=== PATIENT | male | born 1980 | race African-American/Black ===

== ENCOUNTER 2017-12-20 22:20 | Inpatient (IN) | payer MEDICARE, MEDICAID ==
[~2017-12-20] VITALS: Ht 172.7 cm; Wt 84.4 kg
[~2017-12-20 22:20] MED LIST: BENZ1TAB10 PO; FLUO-191 PO; OLAN5TAB2 PO; RISP3 PO
[2017-12-20] MEDS ORDERED: ZOLPIDEM TARTRATE 5 MG TABLET PO PRN (23:00)
[2017-12-20] MEDS ORDERED: HALOPERIDOL 10 MG TABLET PO PRN (23:00)
[2017-12-20] MEDS ORDERED: PNEUMOCOCCAL VACCINE POLYVALENT 0.5 ML VIAL [PPSV23] IM ONE (23:30)
[2017-12-20] MEDS ORDERED: INFLUENZA VIRUS VACCINE QVS 2017-18 (3YR+)/PF 60 MCG/0.5 ML SYRINGE IM ONE (23:30)
[2017-12-21 00:09] VITALS: BP 163/97
[2017-12-21 00:14] VITALS: BP 163/97
[2017-12-21] MEDS: LORazepam 2 MG TABLET PO PRN (01:23)
[2017-12-21 06:44] LABS: BASOPHILS % (AUTO) 0.5 % (0.0-2.0); HEMATOCRIT 40.5 % (41-53); HEMOGLOBIN 13.8 g/dL (13.5-17.5); LYMPHOCYTES # (AUTO) 3.6 K/uL (1.0-4.8); LYMPHOCYTES % (AUTO) 37.9 % (22.0-44.0); MEAN CORPUSCULAR HEMOGLOBIN 31.4 pg (26.0-34.0); MEAN CORPUSCULAR HGB CONC 33.9 G/dL (31.0-37.0); MEAN CORPUSCULAR VOLUME 93 fL (80-100); MONOCYTES % (AUTO) 10.8 % (2.0-9.0); NEUTROPHILS # (AUTO) 4.7 K/uL (1.8-7.7); NEUTROPHILS % (AUTO) 49.8 % (40.0-70.0); PLATELET COUNT (AUTO) 175 K/uL (150-450); RED BLOOD CELL COUNT(AUTO) 4.38 MIL/uL (4.50-5.90); RED CELL DISTRIBUTION WIDTH 14.7 % (11.5-14.5)
[2017-12-21 07:03] LABS: ALANINE AMINOTRANSFERASE 24 U/L (12-78); ALBUMIN 2.9 g/dL (3.4-5.0); ALKALINE PHOSPHATASE 66 U/L (46-116); ANION GAP 5 mmol/L (8-16); ASPARTATE AMINOTRANSFERASE 17 U/L (15-37); BILIRUBIN,TOTAL 0.3 mg/dL (0.1-1.0); CALCIUM, TOTAL 8.5 mg/dL (8.8-10.5); CARBON DIOXIDE 28 mmol/L (22-29); CHLORIDE 104 mmol/L (98-107); CHOL/HDL RATIO 5.1 (4.2-7.3); CHOLESTEROL 142 mg/dL (131-200); CREATININE 0.77 mg/dL (0.60-1.30); FREE T4 (FREE THYROXINE) 0.94 ng/dL (0.76-1.46); GLOMERULAR FILTR. RATE CALC > 60 mL/min (>60); GLUCOSE,RANDOM 93 mg/dL (70-110); HDL CHOLESTEROL 28 mg/dL (40-60); LDL CHOL (CALC.) 101 mg/dL (0-130); POTASSIUM 3.7 mmol/L (3.5-5.1); SODIUM SERUM 137 mmol/L (136-145); THYROID STIMULATING HORMONE 1.78 uIU/mL (0.36-3.74); TOTAL PROTEIN, SERUM 6.7 g/dL (6.4-8.2); TRIGLYCERIDES 63 mg/dL (15-150); UREA NITROGEN, BLOOD 6 mg/dL (7-18)
[2017-12-21 07:13] LABS: HEMOGLOBIN A1C 5.9 % (4.5-6.2)
[2017-12-21 08:00] VITALS: BP 123/90
[2017-12-21] MEDS: OLANZapine 5 MG RAPDIS TABLET PO SCH ×2 (08:19→20:29)
[2017-12-21] MEDS: DIVALPROEX SODIUM 500 MG ER TABLET PO SCH ×2 (08:19→20:29)
[2017-12-21 08:22] LABS: AMPHET/METH SCREEN,URINE NEGATIVE (NEGATIVE); BARBITURATE SCREEN, URINE NEGATIVE (NEGATIVE); BENZODIAZEPINES SCREEN,URINE NEGATIVE (NEGATIVE); CANNABINOID SCREEN,URINE NEGATIVE (NEGATIVE); COCAINE SCREEN,URINE NEGATIVE (NEGATIVE); METHADONE SCREEN, URINE NEGATIVE (NEGATIVE); OPIATE SCREEN,URINE NEGATIVE (NEGATIVE)
[2017-12-21 08:25] LABS: PHENCYCLIDINE SCREEN,URINE NEGATIVE (NEGATIVE)
[2017-12-21 08:43] LABS: APPEARANCE,URINE CLEAR (CLEAR); BILIRUBIN,URINE NEGATIVE (NEGATIVE); GLUCOSE, URINE (UA) NEGATIVE (NEGATIVE); KETONES,URINE NEGATIVE (NEGATIVE); LEUKOCYTE ESTERASE ,URINE NEGATIVE (NEGATIVE); NITRATE,URINE NEGATIVE (NEGATIVE); OCCULT BLOOD,URINE NEGATIVE (NEGATIVE); PROTEIN,URINE NEGATIVE (NEGATIVE)
[2017-12-21] MEDS ORDERED: MAG HYDROX/AL HYDROX/SIMETH ES 30 ML SUSPENSION UDCUP PO PRN (09:00)
[2017-12-21] MEDS ORDERED: IBUPROFEN 600 MG TABLET PO PRN (09:00)
[2017-12-21] MEDS ORDERED: PETROLATUM,WHITE 71 GM JELLY TP PRN (09:00)
[2017-12-21] MEDS ORDERED: BACITRACIN 28.4 GM OINTMENT TP PRN (09:00)
[2017-12-21] MEDS ORDERED: ONDANSETRON HCL 4 MG TABLET PO PRN (09:00)
[2017-12-21] MEDS ORDERED: LOPERAMIDE HCL 2 MG CAPSULE PO PRN (09:00)
[2017-12-21] MEDS ORDERED: ACETAMINOPHEN 325 MG TABLET PO PRN (09:00)
[2017-12-21] MEDS ORDERED: CloNIDine HCL 0.1 MG TABLET PO PRN (09:00)
[2017-12-21] MEDS ORDERED: MAGNESIUM HYDROXIDE SUSPENSION 30 ML UDCUP PO PRN (09:00)
[2017-12-21] MEDS ORDERED: BENZOCAINE/MENTHOL LOZENGE [8 LOZENGES/PACKET] MM PRN (09:00)
[2017-12-21] MEDS ORDERED: ALBUTEROL SULFATE HFA 90 MCG/PUFF 8 GM INHALER IH PRN (09:00)
[2017-12-21] MEDS: OMEPRAZOLE 20 MG CAPSULE PO SCH (10:17)
[2017-12-21 17:27] VITALS: BP 139/69
[2017-12-22 08:00] VITALS: BP 143/86
[2017-12-22] MEDS: OLANZapine 5 MG RAPDIS TABLET PO SCH ×2 (09:00→20:19)
[2017-12-22] MEDS: OMEPRAZOLE 20 MG CAPSULE PO SCH (09:00)
[2017-12-22] MEDS: DIVALPROEX SODIUM 500 MG ER TABLET PO SCH ×2 (09:00→20:19)
[2017-12-22] MEDS: LISINOPRIL 10 MG TABLET PO SCH (09:01)
[2017-12-22] MEDS: LORazepam 2 MG TABLET PO PRN (16:04)
[2017-12-22 19:07] VITALS: BP 131/75
[2017-12-23] MEDS: DIVALPROEX SODIUM 500 MG ER TABLET PO SCH ×2 (08:00→20:14)
[2017-12-23] MEDS: OLANZapine 5 MG RAPDIS TABLET PO SCH ×2 (08:00→20:14)
[2017-12-23] MEDS: OMEPRAZOLE 20 MG CAPSULE PO SCH (08:00)
[2017-12-23] MEDS: LISINOPRIL 10 MG TABLET PO SCH (08:01)
[2017-12-23 08:46] VITALS: BP 122/79
[2017-12-23] MEDS: LORazepam 2 MG TABLET PO PRN (11:00)
[2017-12-23 16:21] VITALS: BP 117/72
[2017-12-24 08:00] VITALS: BP 125/80
[2017-12-24] MEDS: DIVALPROEX SODIUM 500 MG ER TABLET PO SCH ×2 (08:07→20:20)
[2017-12-24] MEDS: OLANZapine 5 MG RAPDIS TABLET PO SCH ×2 (08:08→20:20)
[2017-12-24] MEDS: OMEPRAZOLE 20 MG CAPSULE PO SCH (08:08)
[2017-12-24] MEDS: LISINOPRIL 10 MG TABLET PO SCH (08:08)
[2017-12-24] MEDS: LORazepam 2 MG TABLET PO PRN (11:43)
[2017-12-24 17:19] VITALS: BP 110/59
[2017-12-25 08:30] VITALS: BP 119/89
[2017-12-25] MEDS: DIVALPROEX SODIUM 500 MG ER TABLET PO SCH ×2 (08:30→20:09)
[2017-12-25] MEDS: OMEPRAZOLE 20 MG CAPSULE PO SCH (08:30)
[2017-12-25] MEDS: OLANZapine 5 MG RAPDIS TABLET PO SCH ×2 (08:31→20:10)
[2017-12-25] MEDS: LISINOPRIL 10 MG TABLET PO SCH (08:31)
[2017-12-25 10:10] LABS: HIV 1-2 SCREEN 4TH GEN W/RFLX Non Reactive (Non Reactive)
[2017-12-25 17:03] VITALS: BP 110/77
[2017-12-25] MEDS: LORazepam 2 MG TABLET PO PRN (18:42)
[2017-12-25] MEDS ORDERED: OLANZapine 10 MG RAPDIS TABLET PO SCH (21:00)
[2017-12-26 08:07] VITALS: BP 125/74
[2017-12-26] MEDS: DIVALPROEX SODIUM 500 MG ER TABLET PO SCH ×2 (08:12→21:05)
[2017-12-26] MEDS: OLANZapine 5 MG RAPDIS TABLET PO SCH (08:12)
[2017-12-26] MEDS: OMEPRAZOLE 20 MG CAPSULE PO SCH (08:12)
[2017-12-26] MEDS: LISINOPRIL 10 MG TABLET PO SCH (08:12)
[2017-12-26] MEDS ORDERED: OLANZapine 5 MG RAPDIS TABLET PO SCH ×2 (09:00)
[2017-12-26] MEDS: LORazepam 2 MG TABLET PO PRN (12:36)
[2017-12-26 17:31] VITALS: BP 128/78
[2017-12-26] MEDS: OLANZapine 10 MG RAPDIS TABLET PO SCH (21:03)
[2017-12-27 08:17] VITALS: BP 114/73
[2017-12-27] MEDS: DIVALPROEX SODIUM 500 MG ER TABLET PO SCH ×2 (08:25→20:28)
[2017-12-27] MEDS: OMEPRAZOLE 20 MG CAPSULE PO SCH (08:25)
[2017-12-27] MEDS: LISINOPRIL 10 MG TABLET PO SCH (08:26)
[2017-12-27] MEDS: OLANZapine 5 MG RAPDIS TABLET PO SCH (08:26)
[2017-12-27] MEDS: LORazepam 2 MG TABLET PO PRN (15:10)
[2017-12-27 17:00] VITALS: BP 103/57
[2017-12-27] MEDS: OLANZapine 10 MG RAPDIS TABLET PO SCH (20:29)
[2017-12-28 09:03] VITALS: BP 126/79
[2017-12-28] MEDS: DIVALPROEX SODIUM 500 MG ER TABLET PO SCH ×2 (09:13→20:15)
[2017-12-28] MEDS: LISINOPRIL 10 MG TABLET PO SCH (09:14)
[2017-12-28] MEDS: CHOLECALCIFEROL (VIT D3) 1,000 UNITS TABLET PO SCH (09:14)
[2017-12-28] MEDS: OMEPRAZOLE 20 MG CAPSULE PO SCH (09:14)
[2017-12-28] MEDS: OLANZapine 5 MG RAPDIS TABLET PO SCH (09:15)
[2017-12-28 20:00] VITALS: BP 113/69
[2017-12-28] MEDS: OLANZapine 10 MG RAPDIS TABLET PO SCH (20:15)
[2017-12-29] MEDS ORDERED: DIVA500T52 PO ×2 (05:52)
[2017-12-29] MEDS ORDERED: OLAN5TAB40 PO (05:53)
[2017-12-29] MEDS ORDERED: OLAN10TA6 PO (05:53)
[2017-12-29 08:15] VITALS: BP 113/68
[2017-12-29] MEDS ORDERED: VITAD1000 PO (08:36)
[2017-12-29] MEDS ORDERED: LISI-661 PO (08:36)
[2017-12-29] MEDS ORDERED: OMEP20 PO (08:36)
[2017-12-29 08:56] LABS: BASOPHILS % (AUTO) 0.4 % (0.0-2.0); EOSINOPHILS % (AUTO) 0.7 % (1.0-6.0); HEMOGLOBIN 14.5 g/dL (13.5-17.5); LYMPHOCYTES # (AUTO) 3.9 K/uL (1.0-4.8); LYMPHOCYTES % (AUTO) 34.2 % (22.0-44.0); MEAN CORPUSCULAR HEMOGLOBIN 31.3 pg (26.0-34.0); MEAN CORPUSCULAR HGB CONC 33.8 G/dL (31.0-37.0); MEAN CORPUSCULAR VOLUME 93 fL (80-100); MONOCYTES # (AUTO) 1.2 K/uL (0.1-1.0); MONOCYTES % (AUTO) 10.6 % (2.0-9.0); NEUTROPHILS # (AUTO) 6.2 K/uL (1.8-7.7); NEUTROPHILS % (AUTO) 54.1 % (40.0-70.0); PLATELET COUNT (AUTO) 237 K/uL (150-450); RED BLOOD CELL COUNT(AUTO) 4.64 MIL/uL (4.50-5.90)
[2017-12-29 09:13] LABS: ALBUMIN 3.3 g/dL (3.4-5.0); BILIRUBIN,TOTAL 0.3 mg/dL (0.1-1.0); TOTAL PROTEIN, SERUM 7.4 g/dL (6.4-8.2)
[2017-12-29] MEDS: LISINOPRIL 10 MG TABLET PO SCH (09:14)
[2017-12-29] MEDS: OMEPRAZOLE 20 MG CAPSULE PO SCH (09:14)
[2017-12-29] MEDS: CHOLECALCIFEROL (VIT D3) 1,000 UNITS TABLET PO SCH (09:14)
[2017-12-29] MEDS: OLANZapine 5 MG RAPDIS TABLET PO SCH (09:14)
[2017-12-29] MEDS: DIVALPROEX SODIUM 500 MG ER TABLET PO SCH (09:14)
[2017-12-29 09:22] LABS: BILIRUBIN,DIRECT 0.1 mg/dL (0.00-0.20)
== END 2017-12-29 10:30 | disposition home or self-care (01) | DRG 885 ==
LOC: 3EX 23:02 → EDSTATUS 23:06
PROVIDERS: ADMIT Psychiatry & Neurology Psychiatry; ATTEND Psychiatry & Neurology Psychiatry
DX: F20.0 Paranoid schizophrenia (principal); E83.51 Hypocalcemia; B18.2 Chronic viral hepatitis C; F15.10 Other stimulant abuse, uncomplicated; Z71.51 Drug abuse counseling and surveillance of drug abuser; F17.200 Nicotine dependence, unspecified, uncomplicated; Z71.6 Tobacco abuse counseling; G47.00 Insomnia, unspecified; I10 Essential (primary) hypertension; K21.9 Gastro-esophageal reflux disease without esophagitis; Z91.19 Patient's noncompliance with other medical treatment and regimen
CPT/HCPCS: 80074; 80307; 82306; 83036; 84439; 84443; 85613; 85732; 87081; 87389

== ENCOUNTER 2018-07-04 18:37 | Inpatient (IN) | payer MEDICARE, MEDICAID ==
[~2018-07-04] VITALS: Ht 172.7 cm; Wt 78.5 kg
[~2018-07-04 18:37] MED LIST changes: -BENZ1TAB10 PO; +DIVA500T52 PO; -FLUO-191 PO; +LISI-661 PO; +OLAN10TA6 PO; -OLAN5TAB2 PO; +OLAN5TAB40 PO; +OMEP20 PO; -RISP3 PO; +VITAD1000 PO
[2018-07-04] MEDS ORDERED: HALO5TAB2 PO (19:28)
[2018-07-04 19:42] LABS: BASOPHILS % (AUTO) 0.9 % (0.0-2.0); HEMATOCRIT 43.4 % (41-53); HEMOGLOBIN 14.5 g/dL (13.5-17.5); LYMPHOCYTES # (AUTO) 3.8 K/uL (1.0-4.8); LYMPHOCYTES % (AUTO) 32.4 % (22.0-44.0); MEAN CORPUSCULAR HEMOGLOBIN 31.3 pg (26.0-34.0); MEAN CORPUSCULAR HGB CONC 33.3 G/dL (31.0-37.0); MEAN CORPUSCULAR VOLUME 94 fL (80-100); MONOCYTES # (AUTO) 2.2 K/uL (0.1-1.0); MONOCYTES % (AUTO) 18.8 % (2.0-9.0); NEUTROPHILS # (AUTO) 5.6 K/uL (1.8-7.7); NEUTROPHILS % (AUTO) 46.9 % (40.0-70.0); PLATELET COUNT (AUTO) 179 K/uL (150-450); RED BLOOD CELL COUNT(AUTO) 4.62 MIL/uL (4.50-5.90); RED CELL DISTRIBUTION WIDTH 15.6 % (11.5-14.5)
[2018-07-04 19:56] LABS: ANION GAP 8 mmol/L (8-16); CALCIUM, TOTAL 8.8 mg/dL (8.8-10.5); CARBON DIOXIDE 28 mmol/L (22-29); CHLORIDE 104 mmol/L (98-107); CREATININE 0.99 mg/dL (0.60-1.30); GLOMERULAR FILTR. RATE CALC > 60 mL/min (>60); GLUCOSE,RANDOM 114 mg/dL (70-110); POTASSIUM 3.7 mmol/L (3.5-5.1); SODIUM SERUM 140 mmol/L (136-145); UREA NITROGEN, BLOOD 10 mg/dL (7-18)
[2018-07-04] MEDS ORDERED: LORazepam 2 MG TABLET PO PRN (20:00)
[2018-07-04] MEDS ORDERED: HALOPERIDOL 5 MG TABLET PO PRN (20:00)
[2018-07-04] MEDS ORDERED: ZOLPIDEM TARTRATE 10 MG TABLET PO PRN (20:00)
[2018-07-04] MEDS ORDERED: LORazepam 2 MG TABLET PO ONE (20:00)
[2018-07-04] MEDS ORDERED: HALOPERIDOL 5 MG TABLET PO ONE (20:00)
[2018-07-04] MEDS ORDERED: DiphenhydrAMINE HCL 25 MG CAPSULE PO ONE (20:00)
[2018-07-04 20:03] LABS: ALANINE AMINOTRANSFERASE 15 U/L (12-78); ALBUMIN 3.2 g/dL (3.4-5.0); ALKALINE PHOSPHATASE 83 U/L (46-116); ASPARTATE AMINOTRANSFERASE 8 U/L (15-37); BILIRUBIN,TOTAL 0.3 mg/dL (0.1-1.0); TOTAL PROTEIN, SERUM 7.2 g/dL (6.4-8.2)
[2018-07-04 20:20] LABS: HEMOGLOBIN A1C 5.6 % (4.5-6.2)
[2018-07-04 20:29] LABS: CHOL/HDL RATIO 4.2 (4.2-7.3); CHOLESTEROL 148 mg/dL (131-200); FREE T4 (FREE THYROXINE) 0.97 ng/dL (0.76-1.46); HDL CHOLESTEROL 35 mg/dL (40-60); LDL CHOL (CALC.) 95 mg/dL (0-130); TRIGLYCERIDES 90 mg/dL (15-150)
[2018-07-05 01:55] VITALS: BP 138/84
[2018-07-05] MEDS ORDERED: PNEUMOCOCCAL VACCINE POLYVALENT 0.5 ML VIAL [PPSV23] IM ONE (03:30)
[2018-07-05] MEDS ORDERED: ONDANSETRON HCL 4 MG TABLET PO PRN (07:00)
[2018-07-05] MEDS ORDERED: MAG HYDROX/AL HYDROX/SIMETH ES 30 ML SUSPENSION UDCUP PO PRN (07:00)
[2018-07-05] MEDS ORDERED: IBUPROFEN 600 MG TABLET PO PRN (07:00)
[2018-07-05] MEDS ORDERED: MAGNESIUM HYDROXIDE SUSPENSION 30 ML UDCUP PO PRN (07:00)
[2018-07-05] MEDS ORDERED: PETROLATUM,WHITE 71 GM JELLY TP PRN (07:00)
[2018-07-05] MEDS ORDERED: CloNIDine HCL 0.1 MG TABLET PO PRN (07:00)
[2018-07-05] MEDS ORDERED: ALBUTEROL SULFATE HFA 90 MCG/PUFF 8 GM INHALER IH PRN (07:00)
[2018-07-05] MEDS ORDERED: BENZOCAINE/MENTHOL LOZENGE MM PRN (07:00)
[2018-07-05] MEDS ORDERED: BACITRACIN 28.4 GM OINTMENT TP PRN (07:00)
[2018-07-05] MEDS ORDERED: LOPERAMIDE HCL 2 MG CAPSULE PO PRN ×2 (07:00→11:00)
[2018-07-05] MEDS ORDERED: ACETAMINOPHEN 325 MG TABLET PO PRN (07:00)
[2018-07-05 08:00] VITALS: BP 127/83
[2018-07-05] MEDS: LISINOPRIL 10 MG TABLET PO SCH (08:35)
[2018-07-05] MEDS: CHOLECALCIFEROL (VIT D3) 1,000 UNITS TABLET PO SCH (08:35)
[2018-07-05] MEDS: DOCUSATE SODIUM 100 MG CAPSULE PO SCH (08:35)
[2018-07-05] MEDS: OMEPRAZOLE 20 MG CAPSULE PO SCH (08:35)
[2018-07-05] MEDS ORDERED: LISINOPRIL 10 MG TABLET PO SCH (09:00)
[2018-07-05] MEDS ORDERED: OMEPRAZOLE 20 MG CAPSULE PO SCH (09:00)
[2018-07-05] MEDS: NICOTINE 21 MG/24 HOUR PATCH TD SCH (10:38)
[2018-07-05] MEDS ORDERED: GuaiFENesin/D-METHORPHAN [SUGAR-FREE] 200-20MG/10 ML SYRUP UDCUP PO PRN (11:00)
[2018-07-05] MEDS ORDERED: HydrOXYzine PAMOATE 50 MG CAPSULE PO PRN (11:00)
[2018-07-05] MEDS ORDERED: OLANZapine 5 MG RAPDIS TABLET PO PRN (11:00)
[2018-07-05 16:06] VITALS: BP 114/71
[2018-07-05] MEDS: THIAMINE HCL 100 MG TABLET PO SCH (16:32)
[2018-07-05] MEDS: DIVALPROEX SODIUM 500 MG ER TABLET PO SCH (20:32)
[2018-07-05] MEDS ORDERED: OLANZapine 5 MG RAPDIS TABLET PO SCH (21:00)
[2018-07-06 05:18] VITALS: BP 119/67
[2018-07-06 08:19] VITALS: BP 115/72
[2018-07-06] MEDS: LISINOPRIL 10 MG TABLET PO SCH (08:38)
[2018-07-06] MEDS: NALTREXONE HCL 50 MG TABLET PO SCH (08:38)
[2018-07-06] MEDS: OMEPRAZOLE 20 MG CAPSULE PO SCH (08:38)
[2018-07-06] MEDS: THIAMINE HCL 100 MG TABLET PO SCH ×2 (08:38→16:05)
[2018-07-06] MEDS: CHOLECALCIFEROL (VIT D3) 1,000 UNITS TABLET PO SCH (08:38)
[2018-07-06] MEDS: MULTIVITAMINS WITH MINERALS, THERAPEUTIC TABLET PO SCH (08:38)
[2018-07-06] MEDS: FOLIC ACID 1 MG TABLET PO SCH (08:38)
[2018-07-06] MEDS: DOCUSATE SODIUM 100 MG CAPSULE PO SCH (08:38)
[2018-07-06] MEDS: NICOTINE 21 MG/24 HOUR PATCH TD SCH (08:39)
[2018-07-06 16:06] VITALS: BP 117/81
[2018-07-06] MEDS: OLANZapine 10 MG RAPDIS TABLET PO SCH (20:08)
[2018-07-06] MEDS: DIVALPROEX SODIUM 500 MG ER TABLET PO SCH (20:08)
[2018-07-07 05:44] VITALS: BP 122/75
[2018-07-07 08:15] VITALS: BP 134/61
[2018-07-07 08:37] LABS: HEMATOCRIT 45.1 % (41-53); HEMOGLOBIN 15.1 g/dL (13.5-17.5); MEAN CORPUSCULAR HGB CONC 33.4 G/dL (31.0-37.0); MEAN CORPUSCULAR VOLUME 96 fL (80-100); PLATELET COUNT (AUTO) 163 K/uL (150-450); RED BLOOD CELL COUNT(AUTO) 4.71 MIL/uL (4.50-5.90); RED CELL DISTRIBUTION WIDTH 15.4 % (11.5-14.5)
[2018-07-07] MEDS: OMEPRAZOLE 20 MG CAPSULE PO SCH (08:50)
[2018-07-07] MEDS: LISINOPRIL 10 MG TABLET PO SCH (08:50)
[2018-07-07] MEDS: CHOLECALCIFEROL (VIT D3) 1,000 UNITS TABLET PO SCH (08:50)
[2018-07-07] MEDS: NALTREXONE HCL 50 MG TABLET PO SCH (08:50)
[2018-07-07] MEDS: FOLIC ACID 1 MG TABLET PO SCH (08:50)
[2018-07-07] MEDS: MULTIVITAMINS WITH MINERALS, THERAPEUTIC TABLET PO SCH (08:50)
[2018-07-07] MEDS: DOCUSATE SODIUM 100 MG CAPSULE PO SCH (08:50)
[2018-07-07] MEDS: THIAMINE HCL 100 MG TABLET PO SCH ×2 (08:50→16:32)
[2018-07-07] MEDS: NICOTINE 21 MG/24 HOUR PATCH TD SCH (08:51)
[2018-07-07 10:07] LABS: BAND NEUTROPHILS % (MANUAL) 0 % (0-5)
[2018-07-07 10:09] LABS: LYMPHOCYTES % (MANUAL) 20 % (22-44); MONOCYTES % (MANUAL) 33 % (2-9); SEGMENTED NEUTROPHILS % 47 % (40-70)
[2018-07-07 16:07] VITALS: BP 112/73
[2018-07-07] MEDS: DIVALPROEX SODIUM 500 MG ER TABLET PO SCH (20:35)
[2018-07-07] MEDS: OLANZapine 10 MG RAPDIS TABLET PO SCH (20:35)
[2018-07-08 06:18] VITALS: BP 105/65
[2018-07-08 08:57] VITALS: BP 128/75
[2018-07-08] MEDS: MULTIVITAMINS WITH MINERALS, THERAPEUTIC TABLET PO SCH (08:57)
[2018-07-08] MEDS: THIAMINE HCL 100 MG TABLET PO SCH ×2 (08:57→16:37)
[2018-07-08] MEDS: LISINOPRIL 10 MG TABLET PO SCH (08:57)
[2018-07-08] MEDS: OMEPRAZOLE 20 MG CAPSULE PO SCH (08:57)
[2018-07-08] MEDS: NICOTINE 21 MG/24 HOUR PATCH TD SCH (08:57)
[2018-07-08] MEDS: FOLIC ACID 1 MG TABLET PO SCH (08:57)
[2018-07-08] MEDS: NALTREXONE HCL 50 MG TABLET PO SCH (08:57)
[2018-07-08] MEDS: CHOLECALCIFEROL (VIT D3) 1,000 UNITS TABLET PO SCH (08:57)
[2018-07-08] MEDS: DOCUSATE SODIUM 100 MG CAPSULE PO SCH (08:57)
[2018-07-08 16:07] VITALS: BP 114/72
[2018-07-08] MEDS: DIVALPROEX SODIUM 500 MG ER TABLET PO SCH (20:34)
[2018-07-08] MEDS: OLANZapine 10 MG RAPDIS TABLET PO SCH (20:34)
[2018-07-09 01:15] VITALS: BP 122/75
[2018-07-09] MEDS: MULTIVITAMINS WITH MINERALS, THERAPEUTIC TABLET PO SCH (08:16)
[2018-07-09] MEDS: CHOLECALCIFEROL (VIT D3) 1,000 UNITS TABLET PO SCH (08:16)
[2018-07-09] MEDS: NALTREXONE HCL 50 MG TABLET PO SCH (08:16)
[2018-07-09] MEDS: THIAMINE HCL 100 MG TABLET PO SCH ×2 (08:16→16:06)
[2018-07-09] MEDS: LISINOPRIL 10 MG TABLET PO SCH (08:16)
[2018-07-09] MEDS: OMEPRAZOLE 20 MG CAPSULE PO SCH (08:16)
[2018-07-09] MEDS: DOCUSATE SODIUM 100 MG CAPSULE PO SCH (08:16)
[2018-07-09] MEDS: FOLIC ACID 1 MG TABLET PO SCH (08:17)
[2018-07-09] MEDS: NICOTINE 21 MG/24 HOUR PATCH TD SCH (08:22)
[2018-07-09 08:24] VITALS: BP 123/68
[2018-07-09 16:31] VITALS: BP 111/69
[2018-07-09] MEDS: OLANZapine 10 MG RAPDIS TABLET PO SCH (20:28)
[2018-07-09] MEDS: DIVALPROEX SODIUM 500 MG ER TABLET PO SCH (20:28)
[2018-07-10 05:34] VITALS: BP 120/81
[2018-07-10 08:51] VITALS: BP 118/77
[2018-07-10] MEDS: LISINOPRIL 10 MG TABLET PO SCH (09:01)
[2018-07-10] MEDS: FOLIC ACID 1 MG TABLET PO SCH (09:01)
[2018-07-10] MEDS: OMEPRAZOLE 20 MG CAPSULE PO SCH (09:01)
[2018-07-10] MEDS: MULTIVITAMINS WITH MINERALS, THERAPEUTIC TABLET PO SCH (09:01)
[2018-07-10] MEDS: CHOLECALCIFEROL (VIT D3) 1,000 UNITS TABLET PO SCH (09:01)
[2018-07-10] MEDS: DOCUSATE SODIUM 100 MG CAPSULE PO SCH (09:02)
[2018-07-10] MEDS: NALTREXONE HCL 50 MG TABLET PO SCH (09:02)
[2018-07-10] MEDS: NICOTINE 21 MG/24 HOUR PATCH TD SCH (09:07)
[2018-07-10] MEDS: THIAMINE HCL 100 MG TABLET PO SCH ×2 (09:16→16:10)
[2018-07-10 16:06] VITALS: BP 119/73
[2018-07-10] MEDS: DIVALPROEX SODIUM 500 MG ER TABLET PO SCH (20:24)
[2018-07-10] MEDS: OLANZapine 10 MG RAPDIS TABLET PO SCH (20:25)
[2018-07-11 04:24] VITALS: BP 121/68
[2018-07-11 08:36] VITALS: BP 114/75
[2018-07-11] MEDS: DOCUSATE SODIUM 100 MG CAPSULE PO SCH (08:51)
[2018-07-11] MEDS: THIAMINE HCL 100 MG TABLET PO SCH ×2 (08:51→16:23)
[2018-07-11] MEDS: NALTREXONE HCL 50 MG TABLET PO SCH (08:51)
[2018-07-11] MEDS: FOLIC ACID 1 MG TABLET PO SCH (08:51)
[2018-07-11] MEDS: NICOTINE 21 MG/24 HOUR PATCH TD SCH (08:51)
[2018-07-11] MEDS: MULTIVITAMINS WITH MINERALS, THERAPEUTIC TABLET PO SCH (08:51)
[2018-07-11] MEDS: LISINOPRIL 10 MG TABLET PO SCH (08:51)
[2018-07-11] MEDS: CHOLECALCIFEROL (VIT D3) 1,000 UNITS TABLET PO SCH (08:51)
[2018-07-11] MEDS: OMEPRAZOLE 20 MG CAPSULE PO SCH (08:51)
[2018-07-11] MEDS ORDERED: OLAN10TA22 PO (14:01)
[2018-07-11] MEDS ORDERED: NALT50TA PO (14:01)
[2018-07-11] MEDS ORDERED: DIVA500T52 PO (14:01)
[2018-07-11] MEDS ORDERED: DSS100 PO (16:49)
[2018-07-11] MEDS ORDERED: OLAN10TA3 PO (16:51)
[2018-07-11] MEDS ORDERED: NALT50TA6 PO (16:53)
== END 2018-07-11 17:20 | disposition home or self-care (01) | DRG 885 ==
LOC: EMS 18:39 → B2X 20:51
PROVIDERS: ADMIT Psychiatry & Neurology Psychiatry; ATTEND Psychiatry & Neurology Psychiatry
DX: F20.9 Schizophrenia, unspecified (principal); F17.210 Nicotine dependence, cigarettes, uncomplicated; D72.829 Elevated white blood cell count, unspecified; G47.00 Insomnia, unspecified; F15.90 Other stimulant use, unspecified, uncomplicated; F41.9 Anxiety disorder, unspecified
CPT/HCPCS: 83036; 84439; 84443; 99285; G0480

== ENCOUNTER 2018-12-09 00:37 | Emergency (ER) | payer MEDICARE, OTHER ==
[~2018-12-09] VITALS: Ht 172.7 cm; Wt 80.9 kg
[~2018-12-09 00:37] MED LIST changes: +DSS100 PO; +NALT50TA PO; +NALT50TA6 PO; +OLAN10TA22 PO; +OLAN10TA3 PO; -OLAN10TA6 PO; -OLAN5TAB40 PO
[2018-12-09 01:24] VITALS: BP 124/71
[2018-12-09 01:46] LABS: BASOPHILS % (AUTO) 0.7 % (0.0-2.0); EOSINOPHILS % (AUTO) 0.1 % (1.0-6.0); HEMATOCRIT 43.7 % (41-53); HEMOGLOBIN 14.5 g/dL (13.5-17.5); LYMPHOCYTES # (AUTO) 2.5 K/uL (1.0-4.8); LYMPHOCYTES % (AUTO) 21.1 % (22.0-44.0); MEAN CORPUSCULAR HGB CONC 33.1 G/dL (31.0-37.0); MEAN CORPUSCULAR VOLUME 94 fL (80-100); MONOCYTES % (AUTO) 8.3 % (2.0-9.0); NEUTROPHILS # (AUTO) 8.2 K/uL (1.8-7.7); NEUTROPHILS % (AUTO) 69.8 % (40.0-70.0); PLATELET COUNT (AUTO) 279 K/uL (150-450); RED BLOOD CELL COUNT(AUTO) 4.66 MIL/uL (4.50-5.90); RED CELL DISTRIBUTION WIDTH 14.1 % (11.5-14.5)
[2018-12-09 01:54] LABS: AMPHET/METH SCREEN,URINE POSITIVE (NEGATIVE); BARBITURATE SCREEN, URINE NEGATIVE (NEGATIVE); BENZODIAZEPINES SCREEN,URINE NEGATIVE (NEGATIVE); CANNABINOID SCREEN,URINE NEGATIVE (NEGATIVE); COCAINE SCREEN,URINE NEGATIVE (NEGATIVE); METHADONE SCREEN, URINE NEGATIVE (NEGATIVE); OPIATE SCREEN,URINE NEGATIVE (NEGATIVE)
[2018-12-09 01:55] LABS: PHENCYCLIDINE SCREEN,URINE NEGATIVE (NEGATIVE)
[2018-12-09 01:58] LABS: ANION GAP 10 mmol/L (8-16); CALCIUM, TOTAL 9.7 mg/dL (8.8-10.5); CARBON DIOXIDE 29 mmol/L (22-29); CHLORIDE 102 mmol/L (98-107); CREATININE 1.04 mg/dL (0.60-1.30); GLOMERULAR FILTR. RATE CALC > 60 mL/min (>60); GLUCOSE,RANDOM 89 mg/dL (70-110); SODIUM SERUM 141 mmol/L (136-145); UREA NITROGEN, BLOOD 17 mg/dL (7-18)
[2018-12-09 02:04] LABS: ALANINE AMINOTRANSFERASE 17 U/L (12-78); ALBUMIN 3.9 g/dL (3.4-5.0); ALKALINE PHOSPHATASE 88 U/L (46-116); ASPARTATE AMINOTRANSFERASE 18 U/L (15-37); TOTAL PROTEIN, SERUM 7.7 g/dL (6.4-8.2)
[2018-12-09 03:25] LABS: VALPROIC ACID 23 mcg/mL (50-100)
== END 2018-12-09 03:50 | disposition home or self-care (01) ==
LOC: EMS 00:39
DX: F15.921 Other stimulant use, unspecified with intoxication delirium (principal); F20.9 Schizophrenia, unspecified; F17.210 Nicotine dependence, cigarettes, uncomplicated; Z79.899 Other long term (current) drug therapy
CPT/HCPCS: 36415; 80053; 80164; 80307; 85025; 99285; G0480

== ENCOUNTER 2018-12-10 05:21 | Inpatient (IN) | payer MEDICARE, MEDICAID ==
[~2018-12-10] VITALS: Ht 172.7 cm; Wt 159.0 kg
[~2018-12-10 05:21] MED LIST changes: -DSS100 PO; -LISI-661 PO; -NALT50TA PO; -NALT50TA6 PO; -OLAN10TA22 PO; -OLAN10TA3 PO; -OMEP20 PO; -VITAD1000 PO
[2018-12-10 06:19] LABS: BASOPHILS % (AUTO) 0.6 % (0.0-2.0); EOSINOPHILS % (AUTO) 0.2 % (1.0-6.0); HEMATOCRIT 40.1 % (41-53); HEMOGLOBIN 13.9 g/dL (13.5-17.5); LYMPHOCYTES # (AUTO) 1.9 K/uL (1.0-4.8); LYMPHOCYTES % (AUTO) 19.9 % (22.0-44.0); MEAN CORPUSCULAR HEMOGLOBIN 31.5 pg (26.0-34.0); MEAN CORPUSCULAR HGB CONC 34.6 G/dL (31.0-37.0); MEAN CORPUSCULAR VOLUME 91 fL (80-100); MONOCYTES # (AUTO) 0.8 K/uL (0.1-1.0); MONOCYTES % (AUTO) 8.8 % (2.0-9.0); NEUTROPHILS # (AUTO) 6.7 K/uL (1.8-7.7); NEUTROPHILS % (AUTO) 70.5 % (40.0-70.0); PLATELET COUNT (AUTO) 240 K/uL (150-450); RED CELL DISTRIBUTION WIDTH 14.1 % (11.5-14.5)
[2018-12-10 06:28] LABS: ANION GAP 9 mmol/L (8-16); CALCIUM, TOTAL 8.9 mg/dL (8.8-10.5); CARBON DIOXIDE 27 mmol/L (22-29); CHLORIDE 97 mmol/L (98-107); CREATININE 0.85 mg/dL (0.60-1.30); GLOMERULAR FILTR. RATE CALC > 60 mL/min (>60); GLUCOSE,RANDOM 96 mg/dL (70-110); POTASSIUM 3.5 mmol/L (3.5-5.1); SODIUM SERUM 133 mmol/L (136-145); UREA NITROGEN, BLOOD 17 mg/dL (7-18)
[2018-12-10 06:36] LABS: ALANINE AMINOTRANSFERASE 57 U/L (12-78); ALBUMIN 3.5 g/dL (3.4-5.0); ALKALINE PHOSPHATASE 76 U/L (46-116); ASPARTATE AMINOTRANSFERASE 183 U/L (15-37); BILIRUBIN,TOTAL 1.4 mg/dL (0.1-1.0); TOTAL PROTEIN, SERUM 7.1 g/dL (6.4-8.2); VALPROIC ACID 4 mcg/mL (50-100)
[2018-12-10] MEDS ORDERED: OLANZapine 5 MG TABLET PO ONE (08:30)
[2018-12-10] MEDS ORDERED: LORazepam 2 MG TABLET PO ONE (08:30)
[2018-12-10] MEDS ORDERED: OLANZapine 5 MG RAPDIS TABLET PO PRN (08:45)
[2018-12-10 10:46] VITALS: BP 133/85
[2018-12-10] MEDS ORDERED: LOPERAMIDE HCL 2 MG CAPSULE PO PRN (18:00)
[2018-12-10] MEDS ORDERED: MAGNESIUM HYDROXIDE SUSPENSION 30 ML UDCUP PO PRN (18:00)
[2018-12-10] MEDS ORDERED: CloNIDine HCL 0.1 MG TABLET PO PRN (18:00)
[2018-12-10] MEDS ORDERED: MAG HYDROX/AL HYDROX/SIMETH ES 30 ML SUSPENSION UDCUP PO PRN (18:00)
[2018-12-10] MEDS ORDERED: ACETAMINOPHEN 325 MG TABLET PO PRN (18:00)
[2018-12-10] MEDS ORDERED: PETROLATUM,WHITE 71 GM JELLY TP PRN (18:00)
[2018-12-10] MEDS ORDERED: ONDANSETRON HCL 4 MG TABLET PO PRN (18:00)
[2018-12-10] MEDS ORDERED: DOCUSATE SODIUM 100 MG CAPSULE PO PRN (18:00)
[2018-12-10] MEDS ORDERED: GuaiFENesin/D-METHORPHAN [SUGAR-FREE] 200-20MG/10 ML SYRUP UDCUP PO PRN (18:00)
[2018-12-10] MEDS ORDERED: ALBUTEROL SULFATE HFA 90 MCG/PUFF 8 GM INHALER IH PRN (18:00)
[2018-12-10 19:31] VITALS: BP 126/96
[2018-12-10] MEDS: PALIPERIDONE 6 MG ER TABLET PO SCH (20:44)
[2018-12-11 08:38] VITALS: BP 135/78
[2018-12-11 19:56] VITALS: BP 132/87
[2018-12-11] MEDS: PALIPERIDONE 6 MG ER TABLET PO SCH (20:25)
[2018-12-12 08:05] VITALS: BP 124/75
[2018-12-12] MEDS ORDERED: PALIPERIDONE 3 MG ER TABLET PO SCH (21:00)
[2018-12-12 21:24] VITALS: BP 107/65
[2018-12-12] MEDS: LORazepam 2 MG TABLET PO PRN (22:47)
[2018-12-13 05:01] VITALS: BP 118/82
[2018-12-13 08:00] VITALS: BP 131/78
[2018-12-13] MEDS: NICOTINE 14 MG/24 HOUR PATCH TD PRN (12:27)
[2018-12-13 16:40] VITALS: BP 123/80
[2018-12-13] MEDS: PALIPERIDONE 6 MG ER TABLET PO SCH (21:28)
[2018-12-14 00:05] VITALS: BP 123/76
[2018-12-14] MEDS: LORazepam 2 MG TABLET PO PRN ×2 (00:09→19:35)
[2018-12-14 08:30] VITALS: BP 136/90
[2018-12-14] MEDS: NICOTINE 14 MG/24 HOUR PATCH TD PRN (09:04)
[2018-12-14 16:22] VITALS: BP 116/76
[2018-12-14] MEDS: PALIPERIDONE 6 MG ER TABLET PO SCH (20:37)
[2018-12-15 05:30] VITALS: BP 111/62
[2018-12-15 08:35] VITALS: BP 130/80
[2018-12-15] MEDS: NICOTINE 14 MG/24 HOUR PATCH TD PRN (09:11)
[2018-12-15 17:00] VITALS: BP 136/87
[2018-12-15] MEDS: PALIPERIDONE 6 MG ER TABLET PO SCH (20:17)
[2018-12-16 02:30] VITALS: BP 127/86
[2018-12-16] MEDS: LORazepam 2 MG TABLET PO PRN ×2 (02:33→21:48)
[2018-12-16 08:00] VITALS: BP 127/76
[2018-12-16] MEDS: NICOTINE 14 MG/24 HOUR PATCH TD PRN (08:59)
[2018-12-16 16:47] VITALS: BP 122/88
[2018-12-16] MEDS: PALIPERIDONE 6 MG ER TABLET PO SCH (20:07)
[2018-12-17 02:38] VITALS: BP 117/73
[2018-12-17 08:05] VITALS: BP 118/90
[2018-12-17] MEDS ORDERED: PALIPERIDONE PALMITATE 234 MG/1.5 ML SYRINGE IM ONE (09:00)
[2018-12-17] MEDS: LORazepam 2 MG TABLET PO PRN (11:39)
[2018-12-17] MEDS: NICOTINE 14 MG/24 HOUR PATCH TD PRN (11:39)
[2018-12-17 17:00] VITALS: BP 117/81
[2018-12-17] MEDS: PALIPERIDONE 6 MG ER TABLET PO SCH (20:32)
[2018-12-18] MEDS: ZOLPIDEM TARTRATE 10 MG TABLET PO PRN ×2 (02:32→21:39)
[2018-12-18 02:39] VITALS: BP 122/77
[2018-12-18] MEDS: LORazepam 2 MG TABLET PO PRN ×3 (03:50→15:53)
[2018-12-18 08:05] VITALS: BP 104/65
[2018-12-18 19:22] VITALS: BP 108/77
[2018-12-18] MEDS: PALIPERIDONE 6 MG ER TABLET PO SCH (20:37)
[2018-12-19 08:00] VITALS: BP 110/81
[2018-12-19] MEDS: LORazepam 2 MG TABLET PO PRN (16:06)
[2018-12-19 21:43] VITALS: BP 110/76
[2018-12-20 00:23] VITALS: BP 110/69
[2018-12-20] MEDS: LORazepam 2 MG TABLET PO PRN ×2 (02:52→07:41)
[2018-12-20 03:01] VITALS: BP 111/68
[2018-12-20 09:09] VITALS: BP 119/70
== END 2018-12-20 10:35 | disposition home or self-care (01) | DRG 885 ==
LOC: EMS 05:22 → 3EX 09:25
PROVIDERS: ADMIT Psychiatry & Neurology Psychiatry; ATTEND Psychiatry & Neurology Psychiatry
DX: F20.0 Paranoid schizophrenia (principal); E87.1 Hypo-osmolality and hyponatremia; F15.20 Other stimulant dependence, uncomplicated; B19.20 Unspecified viral hepatitis C without hepatic coma; D64.9 Anemia, unspecified; F17.200 Nicotine dependence, unspecified, uncomplicated; K59.00 Constipation, unspecified; K74.60 Unspecified cirrhosis of liver; Z91.19 Patient's noncompliance with other medical treatment and regimen; Z79.899 Other long term (current) drug therapy
CPT/HCPCS: 84443; G0378; G0480

== ENCOUNTER 2018-12-29 20:47 | Emergency (ER) | payer MEDICARE, OTHER ==
[~2018-12-29] VITALS: Ht 172.7 cm; Wt 68.2 kg
[2018-12-29] MEDS ORDERED: PALI819S IM (21:03)
[2018-12-29 21:17] LABS: BASOPHILS % (AUTO) 0.6 % (0.0-2.0); EOSINOPHILS % (AUTO) 0.1 % (1.0-6.0); HEMATOCRIT 42.5 % (41-53); HEMOGLOBIN 13.9 g/dL (13.5-17.5); LYMPHOCYTES # (AUTO) 2.6 K/uL (1.0-4.8); LYMPHOCYTES % (AUTO) 19.1 % (22.0-44.0); MEAN CORPUSCULAR HEMOGLOBIN 30.2 pg (26.0-34.0); MEAN CORPUSCULAR HGB CONC 32.8 G/dL (31.0-37.0); MEAN CORPUSCULAR VOLUME 92 fL (80-100); MONOCYTES # (AUTO) 0.9 K/uL (0.1-1.0); MONOCYTES % (AUTO) 6.8 % (2.0-9.0); NEUTROPHILS % (AUTO) 73.4 % (40.0-70.0); PLATELET COUNT (AUTO) 313 K/uL (150-450); RED BLOOD CELL COUNT(AUTO) 4.61 MIL/uL (4.50-5.90); RED CELL DISTRIBUTION WIDTH 14.4 % (11.5-14.5)
[2018-12-29 21:32] LABS: ANION GAP 14 mmol/L (8-16); CALCIUM, TOTAL 9.9 mg/dL (8.8-10.5); CARBON DIOXIDE 27 mmol/L (22-29); CHLORIDE 105 mmol/L (98-107); CREATININE 0.96 mg/dL (0.60-1.30); GLOMERULAR FILTR. RATE CALC > 60 mL/min (>60); GLUCOSE,RANDOM 97 mg/dL (70-110); POTASSIUM 4.3 mmol/L (3.5-5.1); SODIUM SERUM 146 mmol/L (136-145); UREA NITROGEN, BLOOD 15 mg/dL (7-18)
[2018-12-29 21:32] LABS: AMPHET/METH SCREEN,URINE POSITIVE (NEGATIVE); BARBITURATE SCREEN, URINE NEGATIVE (NEGATIVE); BENZODIAZEPINES SCREEN,URINE NEGATIVE (NEGATIVE); CANNABINOID SCREEN,URINE NEGATIVE (NEGATIVE); COCAINE SCREEN,URINE NEGATIVE (NEGATIVE); METHADONE SCREEN, URINE NEGATIVE (NEGATIVE); OPIATE SCREEN,URINE NEGATIVE (NEGATIVE); PHENCYCLIDINE SCREEN,URINE NEGATIVE (NEGATIVE)
[2018-12-29 21:37] LABS: ALANINE AMINOTRANSFERASE 31 U/L (12-78); ALBUMIN 4.1 g/dL (3.4-5.0); ALKALINE PHOSPHATASE 94 U/L (46-116); ASPARTATE AMINOTRANSFERASE 20 U/L (15-37); BILIRUBIN,TOTAL 0.8 mg/dL (0.1-1.0)
[2018-12-29 21:58] VITALS: BP 121/78
[2018-12-29] MEDS ORDERED: DiphenhydrAMINE HCL 50 MG/ML VIAL IM ONE (22:00)
[2018-12-29] MEDS ORDERED: LORazepam 2 MG/ML VIAL IM ONE (22:00)
[2018-12-29] MEDS ORDERED: HALOPERIDOL LACTATE 5 MG/ML VIAL IM ONE (22:00)
== END 2018-12-29 23:00 | disposition home or self-care (01) ==
LOC: EMS 20:50
DX: F32.9 Major depressive disorder, single episode, unspecified (principal); F15.10 Other stimulant abuse, uncomplicated; F20.9 Schizophrenia, unspecified; F17.210 Nicotine dependence, cigarettes, uncomplicated
CPT/HCPCS: 36415; 80053; 80307; 85025; 96372; 99285; G0480; J1200; J1630; J2060

== ENCOUNTER 2019-07-28 15:27 | Emergency (ER) | payer MEDICARE, MEDICAID ==
[~2019-07-28] VITALS: Ht 167.6 cm; Wt 72.0 kg
[~2019-07-28 15:27] MED LIST changes: +GABA-531 PO; +OLAN7.5T2 PO
[2019-07-28] MEDS ORDERED: CLON-570 PO (17:03)
[2019-07-28 17:11] LABS: BASOPHILS % (AUTO) 0.6 % (0.0-2.0); EOSINOPHILS % (AUTO) 1.3 % (1.0-6.0); HEMATOCRIT 43.5 % (41-53); HEMOGLOBIN 14.3 g/dL (13.5-17.5); LYMPHOCYTES # (AUTO) 3.8 K/uL (1.0-4.8); LYMPHOCYTES % (AUTO) 35.6 % (22.0-44.0); MEAN CORPUSCULAR HEMOGLOBIN 30.8 pg (26.0-34.0); MEAN CORPUSCULAR HGB CONC 32.9 G/dL (31.0-37.0); MEAN CORPUSCULAR VOLUME 94 fL (80-100); MONOCYTES # (AUTO) 1.1 K/uL (0.1-1.0); MONOCYTES % (AUTO) 10.7 % (2.0-9.0); NEUTROPHILS # (AUTO) 5.5 K/uL (1.8-7.7); NEUTROPHILS % (AUTO) 51.8 % (40.0-70.0); PLATELET COUNT (AUTO) 238 K/uL (150-450); RED BLOOD CELL COUNT(AUTO) 4.64 MIL/uL (4.50-5.90); RED CELL DISTRIBUTION WIDTH 14.1 % (11.5-14.5)
[2019-07-28 17:25] LABS: ANION GAP 7 mmol/L (8-16); CALCIUM, TOTAL 8.7 mg/dL (8.8-10.5); CARBON DIOXIDE 29 mmol/L (22-29); CHLORIDE 105 mmol/L (98-107); CREATININE 0.92 mg/dL (0.60-1.30); GLOMERULAR FILTR. RATE CALC > 60 mL/min (>60); GLUCOSE,RANDOM 94 mg/dL (70-110); POTASSIUM 3.7 mmol/L (3.5-5.1); SODIUM SERUM 141 mmol/L (136-145); UREA NITROGEN, BLOOD 7 mg/dL (7-18)
[2019-07-28 17:32] LABS: ALANINE AMINOTRANSFERASE 20 U/L (12-78); ALBUMIN 3.7 g/dL (3.4-5.0); ALKALINE PHOSPHATASE 105 U/L (46-116); ASPARTATE AMINOTRANSFERASE 17 U/L (15-37); BILIRUBIN,TOTAL 0.4 mg/dL (0.1-1.0); TOTAL PROTEIN, SERUM 7.3 g/dL (6.4-8.2)
[2019-07-28 18:07] LABS: VALPROIC ACID < 3 mcg/mL (50-100)
[2019-07-28] MEDS ORDERED: GABAPENTIN 100 MG CAPSULE PO ONE (18:15)
[2019-07-28] MEDS ORDERED: OLANZapine 5 MG TABLET PO ONE (18:15)
[2019-07-28 18:49] LABS: AMPHET/METH SCREEN,URINE NEGATIVE (NEGATIVE); BARBITURATE SCREEN, URINE NEGATIVE (NEGATIVE); BENZODIAZEPINES SCREEN,URINE NEGATIVE (NEGATIVE); CANNABINOID SCREEN,URINE NEGATIVE (NEGATIVE); COCAINE SCREEN,URINE NEGATIVE (NEGATIVE); METHADONE SCREEN, URINE NEGATIVE (NEGATIVE); OPIATE SCREEN,URINE NEGATIVE (NEGATIVE); PHENCYCLIDINE SCREEN,URINE NEGATIVE (NEGATIVE)
[2019-07-28 19:00] VITALS: BP 118/76
== END 2019-07-28 19:20 | disposition home or self-care (01) ==
LOC: EMS 15:28
DX: F20.9 Schizophrenia, unspecified (principal); F17.210 Nicotine dependence, cigarettes, uncomplicated; F15.90 Other stimulant use, unspecified, uncomplicated; F11.90 Opioid use, unspecified, uncomplicated; F12.90 Cannabis use, unspecified, uncomplicated; Z79.899 Other long term (current) drug therapy; Z91.030 Bee allergy status
CPT/HCPCS: 36415; 80053; 80164; 80307; 85025; 99284; G0480

== ENCOUNTER 2019-09-14 11:51 | Inpatient (IN) | payer MEDICARE, MEDICAID ==
[~2019-09-14] VITALS: Ht 172.7 cm; Wt 71.3 kg
[~2019-09-14 11:51] MED LIST changes: +CLON0.1T2 PO; -DIVA500T52 PO; -GABA-531 PO; -OLAN7.5T2 PO
[2019-09-14 14:14] VITALS: BP 120/72
[2019-09-14] MEDS ORDERED: PALI234D IM ×2 (15:05→15:09)
[2019-09-14] MEDS ORDERED: CHLO100T24 PO (15:05)
[2019-09-14] MEDS ORDERED: HALOPERIDOL 5 MG TABLET PO PRN (15:30)
[2019-09-14] MEDS ORDERED: INFLUENZA VIRUS VACCINE QVS 2019-20 (3YR+)/PF 60 MCG/0.5 ML SYRINGE IM ONE (15:45)
[2019-09-14] MEDS ORDERED: PNEUMOCOCCAL VACCINE POLYVALENT 0.5 ML VIAL [PPSV23] IM ONE (15:45)
[2019-09-14 16:28] VITALS: BP 111/71
[2019-09-14] MEDS: ChlorproMAZINE HCL 100 MG TABLET PO SCH (17:02)
[2019-09-14] MEDS: PALIPERIDONE 6 MG ER TABLET PO SCH (17:03)
[2019-09-15] MEDS: ZOLPIDEM TARTRATE 5 MG TABLET PO PRN (01:58)
[2019-09-15 02:00] VITALS: BP 116/81
[2019-09-15] MEDS ORDERED: GuaiFENesin/D-METHORPHAN [SUGAR-FREE] 200-20MG/10 ML SYRUP UDCUP PO PRN (06:30)
[2019-09-15] MEDS ORDERED: MAGNESIUM HYDROXIDE SUSPENSION 30 ML UDCUP PO PRN (06:30)
[2019-09-15] MEDS ORDERED: MAG HYDROX/AL HYDROX/SIMETH ES 30 ML SUSPENSION UDCUP PO PRN (06:30)
[2019-09-15] MEDS ORDERED: IBUPROFEN 400 MG TABLET PO PRN (06:30)
[2019-09-15] MEDS ORDERED: DOCUSATE SODIUM 100 MG CAPSULE PO PRN (06:30)
[2019-09-15] MEDS ORDERED: CloNIDine HCL 0.1 MG TABLET PO PRN (06:30)
[2019-09-15] MEDS ORDERED: ONDANSETRON HCL 4 MG TABLET PO PRN (06:30)
[2019-09-15] MEDS ORDERED: LOPERAMIDE HCL 2 MG CAPSULE PO PRN (06:30)
[2019-09-15] MEDS ORDERED: ALBUTEROL SULFATE HFA 90 MCG/PUFF 8 GM INHALER IH PRN (06:30)
[2019-09-15] MEDS ORDERED: PETROLATUM,WHITE 28 GM JELLY TP PRN (06:30)
[2019-09-15] MEDS ORDERED: ACETAMINOPHEN 325 MG TABLET PO PRN (06:30)
[2019-09-15 07:56] LABS: BASOPHILS % (AUTO) 0.5 % (0.0-2.0); EOSINOPHILS % (AUTO) 0.8 % (1.0-6.0); HEMATOCRIT 39.4 % (41-53); HEMOGLOBIN 13.3 g/dL (13.5-17.5); LYMPHOCYTES # (AUTO) 2.5 K/uL (1.0-4.8); LYMPHOCYTES % (AUTO) 33.2 % (22.0-44.0); MEAN CORPUSCULAR HEMOGLOBIN 31.2 pg (26.0-34.0); MEAN CORPUSCULAR HGB CONC 33.7 G/dL (31.0-37.0); MEAN CORPUSCULAR VOLUME 93 fL (80-100); MONOCYTES # (AUTO) 0.9 K/uL (0.1-1.0); MONOCYTES % (AUTO) 11.8 % (2.0-9.0); NEUTROPHILS % (AUTO) 53.7 % (40.0-70.0); PLATELET COUNT (AUTO) 200 K/uL (150-450); RED BLOOD CELL COUNT(AUTO) 4.26 MIL/uL (4.50-5.90); RED CELL DISTRIBUTION WIDTH 14.5 % (11.5-14.5)
[2019-09-15 08:18] LABS: ALANINE AMINOTRANSFERASE 16 U/L (12-78); ALBUMIN 3.4 g/dL (3.4-5.0); ALKALINE PHOSPHATASE 97 U/L (46-116); ANION GAP 10 mmol/L (8-16); ASPARTATE AMINOTRANSFERASE 16 U/L (15-37); BILIRUBIN,TOTAL 0.5 mg/dL (0.1-1.0); CALCIUM, TOTAL 8.4 mg/dL (8.8-10.5); CARBON DIOXIDE 25 mmol/L (22-29); CHLORIDE 104 mmol/L (98-107); CHOL/HDL RATIO 2.8 (4.2-7.3); CHOLESTEROL 138 mg/dL (131-200); CREATININE 1.07 mg/dL (0.60-1.30); FREE T4 (FREE THYROXINE) 1.05 ng/dL (0.76-1.46); GLOMERULAR FILTR. RATE CALC > 60 mL/min (>60); GLUCOSE,RANDOM 75 mg/dL (70-110); HDL CHOLESTEROL 50 mg/dL (40-60); LDL CHOL (CALC.) 80 mg/dL (0-130); POTASSIUM 4.2 mmol/L (3.5-5.1); SODIUM SERUM 139 mmol/L (136-145); THYROID STIMULATING HORMONE 2.01 uIU/mL (0.36-3.74); TOTAL PROTEIN, SERUM 6.9 g/dL (6.4-8.2); TRIGLYCERIDES 41 mg/dL (15-150); UREA NITROGEN, BLOOD 13 mg/dL (7-18)
[2019-09-15] MEDS: PALIPERIDONE 6 MG ER TABLET PO SCH ×2 (08:18→16:37)
[2019-09-15] MEDS: ChlorproMAZINE HCL 100 MG TABLET PO SCH ×2 (08:18→16:37)
[2019-09-15 08:25] LABS: HEMOGLOBIN A1C 5.6 % (4.5-6.2)
[2019-09-15 08:30] VITALS: BP 132/76
[2019-09-15] MEDS: LORazepam 2 MG TABLET PO PRN (10:08)
[2019-09-15] MEDS: NICOTINE 14 MG/24 HOUR PATCH TD PRN (11:40)
[2019-09-15 16:15] VITALS: BP 103/62
[2019-09-16 00:10] VITALS: BP 119/72
[2019-09-16 08:18] VITALS: BP 121/73
[2019-09-16] MEDS: ChlorproMAZINE HCL 100 MG TABLET PO SCH ×2 (08:19→16:26)
[2019-09-16] MEDS: PALIPERIDONE 6 MG ER TABLET PO SCH ×2 (08:19→16:26)
[2019-09-16] MEDS: NICOTINE 14 MG/24 HOUR PATCH TD PRN (10:18)
[2019-09-16 16:01] VITALS: BP 110/71
[2019-09-17 00:56] VITALS: BP 104/79
[2019-09-17 08:07] VITALS: BP 114/66
[2019-09-17] MEDS: PALIPERIDONE 6 MG ER TABLET PO SCH ×2 (08:09→16:11)
[2019-09-17] MEDS: LORazepam 2 MG TABLET PO PRN (08:10)
[2019-09-17] MEDS: ChlorproMAZINE HCL 100 MG TABLET PO SCH ×2 (08:10→16:11)
[2019-09-17] MEDS: NICOTINE 14 MG/24 HOUR PATCH TD PRN (14:01)
[2019-09-17 16:19] VITALS: BP 106/65
[2019-09-17] MEDS: ZOLPIDEM TARTRATE 5 MG TABLET PO PRN (21:29)
[2019-09-18 01:50] VITALS: BP 103/76
[2019-09-18] MEDS: LORazepam 2 MG TABLET PO PRN (03:16)
[2019-09-18 08:48] VITALS: BP 129/81
[2019-09-18] MEDS: PALIPERIDONE 6 MG ER TABLET PO SCH ×2 (08:49→16:28)
[2019-09-18] MEDS: ChlorproMAZINE HCL 100 MG TABLET PO SCH ×2 (09:52→16:48)
[2019-09-18 16:02] VITALS: BP 105/78
[2019-09-19 00:44] VITALS: BP 110/70
[2019-09-19] MEDS: ZOLPIDEM TARTRATE 5 MG TABLET PO PRN (01:10)
[2019-09-19 08:10] VITALS: BP 121/73
[2019-09-19] MEDS: ChlorproMAZINE HCL 100 MG TABLET PO SCH ×2 (08:21→16:41)
[2019-09-19] MEDS: PALIPERIDONE 6 MG ER TABLET PO SCH ×2 (08:21→16:41)
[2019-09-19] MEDS: NICOTINE 14 MG/24 HOUR PATCH TD PRN (08:27)
[2019-09-19 16:47] VITALS: BP_SYST 108; BP_SYST 160; BP_DIAS 63; BP_DIAS 88
[2019-09-20 00:30] VITALS: BP 103/62
[2019-09-20] MEDS: ZOLPIDEM TARTRATE 5 MG TABLET PO PRN (01:15)
[2019-09-20 08:11] VITALS: BP 133/72
[2019-09-20] MEDS: ChlorproMAZINE HCL 100 MG TABLET PO SCH ×2 (08:29→17:35)
[2019-09-20] MEDS: PALIPERIDONE 6 MG ER TABLET PO SCH ×2 (08:29→17:35)
[2019-09-20] MEDS: NICOTINE 14 MG/24 HOUR PATCH TD SCH (09:00)
[2019-09-20 11:23] LABS: GLUCOMETER DEV NAME(LOC) BV2X.; GLUCOSE,POINT OF CARE 117 MG/DL (70-110)
[2019-09-20] MEDS ORDERED: PALIPERIDONE PALMITATE 234 MG/1.5 ML SYRINGE IM SCH (16:00)
[2019-09-20 16:02] VITALS: BP 112/70
[2019-09-21 00:03] VITALS: BP 117/79
[2019-09-21] MEDS: ZOLPIDEM TARTRATE 5 MG TABLET PO PRN (02:50)
[2019-09-21 08:03] VITALS: BP 117/67
[2019-09-21] MEDS: PALIPERIDONE 6 MG ER TABLET PO SCH ×2 (08:19→16:24)
[2019-09-21] MEDS: ChlorproMAZINE HCL 100 MG TABLET PO SCH ×2 (08:19→16:24)
[2019-09-21] MEDS: NICOTINE 14 MG/24 HOUR PATCH TD SCH (08:20)
[2019-09-21 16:03] VITALS: BP 112/67
[2019-09-21 23:42] VITALS: BP 102/71
[2019-09-22 07:09] VITALS: BP 120/73
[2019-09-22 08:07] VITALS: BP 121/76
[2019-09-22] MEDS: PALIPERIDONE 6 MG ER TABLET PO SCH ×2 (08:31→17:34)
[2019-09-22] MEDS: ChlorproMAZINE HCL 100 MG TABLET PO SCH ×2 (08:31→17:34)
[2019-09-22] MEDS: NICOTINE 14 MG/24 HOUR PATCH TD SCH (08:32)
[2019-09-22 16:35] VITALS: BP 109/70
[2019-09-23 00:16] VITALS: BP 118/71
[2019-09-23] MEDS: ZOLPIDEM TARTRATE 5 MG TABLET PO PRN (01:13)
[2019-09-23 08:06] VITALS: BP 108/73
[2019-09-23] MEDS: ChlorproMAZINE HCL 100 MG TABLET PO SCH ×2 (08:24→16:33)
[2019-09-23] MEDS: PALIPERIDONE 6 MG ER TABLET PO SCH ×2 (08:24→16:33)
[2019-09-23] MEDS: NICOTINE 14 MG/24 HOUR PATCH TD SCH (08:25)
[2019-09-23 16:07] VITALS: BP 118/69
[2019-09-24 01:00] VITALS: BP 100/63
[2019-09-24 08:06] VITALS: BP 106/73
[2019-09-24] MEDS: ChlorproMAZINE HCL 100 MG TABLET PO SCH ×2 (09:15→16:30)
[2019-09-24] MEDS: NICOTINE 14 MG/24 HOUR PATCH TD SCH (09:15)
[2019-09-24] MEDS: PALIPERIDONE 6 MG ER TABLET PO SCH ×2 (09:15→16:30)
[2019-09-24 16:06] VITALS: BP_SYST 113
[2019-09-25 00:40] VITALS: BP 119/73
[2019-09-25] MEDS: PALIPERIDONE 6 MG ER TABLET PO SCH (08:10)
[2019-09-25] MEDS: ChlorproMAZINE HCL 100 MG TABLET PO SCH (08:10)
[2019-09-25] MEDS: NICOTINE 14 MG/24 HOUR PATCH TD SCH (08:10)
[2019-09-25 08:19] VITALS: BP 108/61
== END 2019-09-25 10:30 | disposition home or self-care (01) | DRG 885 ==
LOC: B2X 15:33
PROVIDERS: ADMIT Psychiatry & Neurology Child & Adolescent Psychiatry; ATTEND Psychiatry & Neurology Child & Adolescent Psychiatry
DX: F20.0 Paranoid schizophrenia (principal); B18.2 Chronic viral hepatitis C; D64.9 Anemia, unspecified; F10.10 Alcohol abuse, uncomplicated; I10 Essential (primary) hypertension; K59.00 Constipation, unspecified; F19.10 Other psychoactive substance abuse, uncomplicated; Z53.29 Procedure and treatment not carried out because of patient's decision for other reasons; Z79.899 Other long term (current) drug therapy
CPT/HCPCS: 83036; 84439; 84443; 87081; 90686

== ENCOUNTER 2019-10-19 15:58 | Inpatient (IN) | payer MEDICARE, MEDICAID ==
[~2019-10-19] VITALS: Ht 175.3 cm; Wt 68.5 kg
[~2019-10-19 15:58] MED LIST changes: +CHLO100T24 PO; -CLON0.1T2 PO
[2019-10-19] MEDS ORDERED: PALI39DI IM (16:55)
[2019-10-19] MEDS ORDERED: HALOPERIDOL 5 MG TABLET PO ONE (17:00)
[2019-10-19 17:14] LABS: BASOPHILS % (AUTO) 0.5 % (0.0-2.0); EOSINOPHILS % (AUTO) 1.2 % (1.0-6.0); HEMATOCRIT 39.2 % (41-53); HEMOGLOBIN 13.1 g/dL (13.5-17.5); LYMPHOCYTES # (AUTO) 3.1 K/uL (1.0-4.8); LYMPHOCYTES % (AUTO) 37.1 % (22.0-44.0); MEAN CORPUSCULAR HEMOGLOBIN 31.2 pg (26.0-34.0); MEAN CORPUSCULAR HGB CONC 33.5 G/dL (31.0-37.0); MEAN CORPUSCULAR VOLUME 93 fL (80-100); MONOCYTES % (AUTO) 11.6 % (2.0-9.0); NEUTROPHILS # (AUTO) 4.2 K/uL (1.8-7.7); NEUTROPHILS % (AUTO) 49.6 % (40.0-70.0); PLATELET COUNT (AUTO) 217 K/uL (150-450); RED BLOOD CELL COUNT(AUTO) 4.21 MIL/uL (4.50-5.90); RED CELL DISTRIBUTION WIDTH 14.2 % (11.5-14.5)
[2019-10-19 17:24] LABS: ANION GAP 6 mmol/L (8-16); CALCIUM, TOTAL 8.5 mg/dL (8.8-10.5); CARBON DIOXIDE 27 mmol/L (22-29); CHLORIDE 105 mmol/L (98-107); CREATININE 0.74 mg/dL (0.60-1.30); GLOMERULAR FILTR. RATE CALC > 60 mL/min (>60); GLUCOSE,RANDOM 107 mg/dL (70-110); POTASSIUM 4.1 mmol/L (3.5-5.1); SODIUM SERUM 138 mmol/L (136-145); UREA NITROGEN, BLOOD 8 mg/dL (7-18)
[2019-10-19 17:30] LABS: ALANINE AMINOTRANSFERASE 27 U/L (12-78); ALBUMIN 3.3 g/dL (3.4-5.0); ALKALINE PHOSPHATASE 92 U/L (46-116); ASPARTATE AMINOTRANSFERASE 23 U/L (15-37); BILIRUBIN,TOTAL 0.3 mg/dL (0.1-1.0); TOTAL PROTEIN, SERUM 6.7 g/dL (6.4-8.2)
[2019-10-19] MEDS ORDERED: ZOLPIDEM TARTRATE 10 MG TABLET PO PRN (18:15)
[2019-10-19] MEDS ORDERED: LORazepam 2 MG TABLET PO PRN (18:15)
[2019-10-19] MEDS ORDERED: PALIPERIDONE 1.5 MG ER TABLET PO PRN (18:15)
[2019-10-19 20:08] VITALS: BP 113/77
[2019-10-19] MEDS ORDERED: PALIPERIDONE 6 MG ER TABLET PO SCH (21:00)
[2019-10-20] MEDS ORDERED: NICOTINE 14 MG/24 HOUR PATCH TD ONE (09:00)
[2019-10-20 09:20] VITALS: BP 114/72
[2019-10-20] MEDS ORDERED: GuaiFENesin/D-METHORPHAN [SUGAR-FREE] 200-20MG/10 ML SYRUP UDCUP PO PRN (12:00)
[2019-10-20] MEDS ORDERED: TUBERCULIN, PURIFIED PROTEIN DERIVATIVE 5 TU/0.1 ML SYRINGE ID ONE (12:00)
[2019-10-20] MEDS ORDERED: HydrOXYzine PAMOATE 50 MG CAPSULE PO PRN (12:00)
[2019-10-20] MEDS ORDERED: ACETAMINOPHEN 325 MG TABLET PO PRN (12:00)
[2019-10-20] MEDS ORDERED: PALIPERIDONE PALMITATE 234 MG/1.5 ML SYRINGE IM ONE (12:00)
[2019-10-20] MEDS ORDERED: PROMETHAZINE HCL 25 MG TABLET PO PRN (12:00)
[2019-10-20] MEDS ORDERED: LOPERAMIDE HCL 2 MG CAPSULE PO PRN (12:00)
[2019-10-20] MEDS ORDERED: MAGNESIUM HYDROXIDE SUSPENSION 30 ML UDCUP PO PRN (12:00)
[2019-10-20] MEDS ORDERED: MAG HYDROX/AL HYDROX/SIMETH ES 30 ML SUSPENSION UDCUP PO PRN (12:00)
[2019-10-20] MEDS: THIAMINE HCL 100 MG TABLET PO SCH (16:10)
[2019-10-20 19:40] VITALS: BP 107/71
[2019-10-21 04:17] VITALS: BP 121/89
[2019-10-21] MEDS: MULTIVITAMINS WITH MINERALS, THERAPEUTIC TABLET PO SCH (08:27)
[2019-10-21] MEDS: FOLIC ACID 1 MG TABLET PO SCH (08:27)
[2019-10-21] MEDS: THIAMINE HCL 100 MG TABLET PO SCH ×2 (08:27→16:02)
[2019-10-21] MEDS ORDERED: PALIPERIDONE PALMITATE 234 MG/1.5 ML SYRINGE IM SCH (09:00)
[2019-10-21 09:24] LABS: HEMOGLOBIN A1C 5.6 % (4.5-6.2)
[2019-10-21 09:27] LABS: FREE T4 (FREE THYROXINE) 0.8 ng/dL (0.76-1.46); THYROID STIMULATING HORMONE 1.08 uIU/mL (0.36-3.74)
[2019-10-21 09:38] VITALS: BP 121/73
[2019-10-21 17:00] VITALS: BP 120/77
[2019-10-22 02:52] VITALS: BP 105/75
[2019-10-22] MEDS: FOLIC ACID 1 MG TABLET PO SCH (08:12)
[2019-10-22] MEDS: MULTIVITAMINS WITH MINERALS, THERAPEUTIC TABLET PO SCH (08:12)
[2019-10-22] MEDS: THIAMINE HCL 100 MG TABLET PO SCH ×2 (08:12→16:11)
[2019-10-22 09:19] VITALS: BP 113/69
[2019-10-22 16:37] VITALS: BP 107/75
[2019-10-23 03:59] VITALS: BP 117/75
[2019-10-23] MEDS: THIAMINE HCL 100 MG TABLET PO SCH ×2 (08:22→15:58)
[2019-10-23] MEDS: MULTIVITAMINS WITH MINERALS, THERAPEUTIC TABLET PO SCH (08:22)
[2019-10-23] MEDS: FOLIC ACID 1 MG TABLET PO SCH (08:24)
[2019-10-23 09:01] VITALS: BP 118/90
[2019-10-23] MEDS ORDERED: PALI234D IM (11:59)
[2019-10-23] MEDS: NICOTINE 21 MG/24 HOUR PATCH TD SCH (12:44)
[2019-10-23 18:15] VITALS: BP 111/77
[2019-10-24 03:44] VITALS: BP 109/79
[2019-10-24] MEDS: MULTIVITAMINS WITH MINERALS, THERAPEUTIC TABLET PO SCH (08:43)
[2019-10-24] MEDS: THIAMINE HCL 100 MG TABLET PO SCH ×2 (08:43→16:24)
[2019-10-24] MEDS: FOLIC ACID 1 MG TABLET PO SCH (08:44)
[2019-10-24] MEDS: NICOTINE 21 MG/24 HOUR PATCH TD SCH (08:44)
[2019-10-24 08:57] VITALS: BP 109/64
[2019-10-24 17:53] VITALS: BP 118/73
[2019-10-24] MEDS ORDERED: BISACODYL 5 MG EC TABLET PO PRN (19:15)
[2019-10-25 04:20] VITALS: BP 110/92
[2019-10-25] MEDS: MULTIVITAMINS WITH MINERALS, THERAPEUTIC TABLET PO SCH (08:18)
[2019-10-25] MEDS: THIAMINE HCL 100 MG TABLET PO SCH ×2 (08:18→16:09)
[2019-10-25] MEDS: FOLIC ACID 1 MG TABLET PO SCH (08:18)
[2019-10-25] MEDS: NICOTINE 21 MG/24 HOUR PATCH TD SCH (08:19)
[2019-10-25 08:37] VITALS: BP 97/78
[2019-10-25 17:58] VITALS: BP 128/78
[2019-10-26 06:13] VITALS: BP 122/76
[2019-10-26] MEDS: MULTIVITAMINS WITH MINERALS, THERAPEUTIC TABLET PO SCH (08:29)
[2019-10-26] MEDS: THIAMINE HCL 100 MG TABLET PO SCH ×2 (08:29→16:31)
[2019-10-26] MEDS: FOLIC ACID 1 MG TABLET PO SCH (08:29)
[2019-10-26] MEDS: NICOTINE 21 MG/24 HOUR PATCH TD SCH (08:32)
[2019-10-26 10:35] VITALS: BP 119/83
[2019-10-26 16:40] VITALS: BP 109/76
[2019-10-27 03:51] VITALS: BP 108/73
[2019-10-27] MEDS: MULTIVITAMINS WITH MINERALS, THERAPEUTIC TABLET PO SCH (08:20)
[2019-10-27] MEDS: THIAMINE HCL 100 MG TABLET PO SCH ×2 (08:21→16:19)
[2019-10-27] MEDS: FOLIC ACID 1 MG TABLET PO SCH (08:21)
[2019-10-27] MEDS: NICOTINE 21 MG/24 HOUR PATCH TD SCH (08:23)
[2019-10-27 10:19] VITALS: BP 120/81
[2019-10-27 16:30] VITALS: BP 94/73
[2019-10-28 04:21] VITALS: BP 101/70
[2019-10-28] MEDS: FOLIC ACID 1 MG TABLET PO SCH (08:21)
[2019-10-28] MEDS: NICOTINE 21 MG/24 HOUR PATCH TD SCH (08:21)
[2019-10-28] MEDS: THIAMINE HCL 100 MG TABLET PO SCH ×2 (08:21→16:22)
[2019-10-28] MEDS: MULTIVITAMINS WITH MINERALS, THERAPEUTIC TABLET PO SCH (08:21)
[2019-10-28 08:42] VITALS: BP 100/77
[2019-10-28 16:00] VITALS: BP 142/74
[2019-10-29] MEDS: FOLIC ACID 1 MG TABLET PO SCH (08:31)
[2019-10-29] MEDS: MULTIVITAMINS WITH MINERALS, THERAPEUTIC TABLET PO SCH (08:31)
[2019-10-29] MEDS: THIAMINE HCL 100 MG TABLET PO SCH ×2 (08:31→16:43)
[2019-10-29] MEDS: NICOTINE 21 MG/24 HOUR PATCH TD SCH (08:32)
[2019-10-29 09:00] VITALS: BP 111/61
[2019-10-29 16:00] VITALS: BP 116/70
[2019-10-29 16:37] VITALS: BP 116/70
[2019-10-30 02:39] VITALS: BP 110/71
[2019-10-30] MEDS: FOLIC ACID 1 MG TABLET PO SCH (08:19)
[2019-10-30] MEDS: MULTIVITAMINS WITH MINERALS, THERAPEUTIC TABLET PO SCH (08:19)
[2019-10-30] MEDS: NICOTINE 21 MG/24 HOUR PATCH TD SCH (08:19)
[2019-10-30] MEDS: THIAMINE HCL 100 MG TABLET PO SCH (08:19)
[2019-10-30 09:56] VITALS: BP 101/72
[2019-10-30 17:10] VITALS: BP 117/72
[2019-10-31 04:13] VITALS: BP 100/69
[2019-10-31] MEDS: NICOTINE 21 MG/24 HOUR PATCH TD SCH (08:13)
[2019-10-31] MEDS: MULTIVITAMINS WITH MINERALS, THERAPEUTIC TABLET PO SCH (08:14)
[2019-10-31 10:08] VITALS: BP 120/83
[2019-10-31 16:59] VITALS: BP 116/77
[2019-11-01 02:08] VITALS: BP 105/71
[2019-11-01] MEDS: MULTIVITAMINS WITH MINERALS, THERAPEUTIC TABLET PO SCH (08:23)
[2019-11-01] MEDS: NICOTINE 21 MG/24 HOUR PATCH TD SCH (08:24)
[2019-11-01 09:07] VITALS: BP 98/67
[2019-11-01] MEDS ORDERED: PALI234D IM (11:48)
[2019-11-01 16:00] VITALS: BP 119/72
[2019-11-02 08:17] VITALS: BP 106/76
[2019-11-02] MEDS: MULTIVITAMINS WITH MINERALS, THERAPEUTIC TABLET PO SCH (08:49)
[2019-11-02] MEDS: NICOTINE 21 MG/24 HOUR PATCH TD SCH (08:50)
[2019-11-02 17:02] VITALS: BP 104/81
[2019-11-03 04:49] VITALS: BP 110/74
[2019-11-03] MEDS: NICOTINE 21 MG/24 HOUR PATCH TD SCH (08:17)
[2019-11-03] MEDS: MULTIVITAMINS WITH MINERALS, THERAPEUTIC TABLET PO SCH (08:17)
[2019-11-03 09:53] VITALS: BP 104/69
[2019-11-03 17:18] VITALS: BP 90/64
[2019-11-04 02:52] VITALS: BP 96/66
[2019-11-04] MEDS: NICOTINE 21 MG/24 HOUR PATCH TD SCH (08:25)
[2019-11-04] MEDS: MULTIVITAMINS WITH MINERALS, THERAPEUTIC TABLET PO SCH (08:25)
[2019-11-04 08:47] VITALS: BP 101/69
[2019-11-17] MEDS ORDERED: PALIPERIDONE PALMITATE 234 MG/1.5 ML SYRINGE IM SCH (09:00)
== END 2019-11-04 14:00 | disposition home or self-care (01) | DRG 885 ==
LOC: EMS 16:01 → 3EX 19:29
PROVIDERS: ADMIT Psychiatry & Neurology Psychiatry; ATTEND Psychiatry & Neurology Psychiatry
DX: F20.0 Paranoid schizophrenia (principal); B19.20 Unspecified viral hepatitis C without hepatic coma; D64.9 Anemia, unspecified; F15.10 Other stimulant abuse, uncomplicated; I10 Essential (primary) hypertension; F11.90 Opioid use, unspecified, uncomplicated; R45.87 Impulsiveness; K59.00 Constipation, unspecified; Z72.0 Tobacco use; Z82.49 Family history of ischemic heart disease and other diseases of the circulatory system; Z81.8 Family history of other mental and behavioral disorders; Z82.5 Family history of asthma and other chronic lower respiratory diseases; Z91.14 Patient's other noncompliance with medication regimen
CPT/HCPCS: 83036; 84439; 84443; 86592; 87081; G0378; G0480

== ENCOUNTER 2025-04-20 14:14 | Emergency (ER) | payer MEDICARE, OTHER ==
[~2025-04-20] VITALS: Ht 177.8 cm; Wt 59.1 kg
[~2025-04-20 14:14] MED LIST changes: -CHLO100T24 PO; +PALI234D IM
[2025-04-20 14:19] VITALS: BP 102/79; PULSE 126; RESP 20; TEMP 98.8; O2SAT 99
[2025-04-20] MEDS: ACETAMINOPHEN 500 MG TABLET PO ONE (16:37)
[2025-04-20] MEDS: OMEPRAZOLE 20 MG CAPSULE PO ONE (16:37)
[2025-04-20] MEDS: MAG HYDROX/ALUMINUM HYD/SIMETH ES 30 ML SUSPENSION UDCUP PO ONE (16:37)
[2025-04-20 16:46] LABS: PLATELET COUNT (AUTO) 356 K/uL (150-450); RED BLOOD CELL COUNT(AUTO) 3.70 MIL/uL (4.50-5.90); RED CELL DISTRIBUTION WIDTH 14.4 % (11.5-14.5); WHITE BLOOD COUNT (AUTO) 8.5 K/uL (4.5-11.0)
[2025-04-20 17:01] LABS: ALCOHOL, BLOOD (SERUM) < 3 mg/dL (0-10)
[2025-04-20 17:08] LABS: CALCIUM, TOTAL 8.4 mg/dL (8.8-10.5); CREATININE 0.92 mg/dL (0.60-1.30); GLOMERULAR FILTR. RATE CALC > 60 mL/min (>60); GLUCOSE,RANDOM 81 mg/dL (70-110); SODIUM SERUM 143 mmol/L (136-145); UREA NITROGEN, BLOOD 13 mg/dL (7-18)
[2025-04-20 17:18] LABS: TROPONIN I-HIGH SENSITIVITY 11 ng/L (<76)
[2025-04-20] MEDS ORDERED: OLAN10TA74 PO (18:18)
== END 2025-04-20 18:27 | disposition home or self-care (01) ==
LOC: EMS 14:16
DX: F25.9 Schizoaffective disorder, unspecified (principal); K29.70 Gastritis, unspecified, without bleeding; F15.10 Other stimulant abuse, uncomplicated; F12.90 Cannabis use, unspecified, uncomplicated; F17.210 Nicotine dependence, cigarettes, uncomplicated; Z91.030 Bee allergy status; Z79.899 Other long term (current) drug therapy
CPT/HCPCS: 99284; 80048; 83690; 84484; 85025; 36415; G0480